=== PATIENT | female | born 1985 | race Caucasian/White ===

== ENCOUNTER 2016-10-21 00:40 | Inpatient (IN) | payer OTHER ==
[2016-10-21] MEDS ORDERED: AMPICILLIN - 100 ML IVPB ONE (01:20)
[2016-10-21 01:41] VITALS: BMI 37.9
[2016-10-21 01:41] LABS: BASOPHIL 0.3 % (0-2.0); EOSINOPHIL 0.5 % (0-4.5); MCH 27.6 pg (25.7-33.7); MEAN CELL VOLUME 83.9 fl (80-96); NEUTROPHILS 78.7 % (42.8-82.8); PLATELET COUNT 169 K/MM3 (134-434); RDW 15.4 % (11.6-15.6); WHITE BLOOD COUNT 12.7 K/mm3 (4.0-10.0)
[2016-10-21 01:52] LABS: INR 1.05 (0.82-1.09); PROTHROMBIN TIME (PATIENT) 11.6 SEC (9.98-11.88)
[2016-10-21 01:54] LABS: ACTIVATED PTT 27.6 SECONDS (26.9-34.4)
[2016-10-21] MEDS ORDERED: DEXTROSE 5%-LACTATED RINGERS 1,000 ML IV SCH (02:00)
[2016-10-21 02:10] LABS: ALBUMIN 2.9 g/dl (3.4-5.0); ALK PHOS 177 U/L (45-117); ANION GAP 10 (8-16); BILIRUBIN,TOTAL 0.4 mg/dL (0.2-1.0); CALCIUM 8.8 mg/dL (8.5-10.1); CO2 25 mmol/L (21-32); CREATININE 0.4 mg/dL (0.55-1.02); GLUCOSE,RANDOM 110 mg/dL (74-106); SGOT/AST 9 U/L (15-37); SGPT/ALT 13 U/L (12-78); TOT PROT 6.3 g/dl (6.4-8.2)
[2016-10-21] MEDS ORDERED: WITCH HAZEL 50% (TUCKS) 40 PAD/JAR PAD TP PRN (02:13)
[2016-10-21] MEDS ORDERED: BENZOCAINE 28 GM HEMORRHOIDAL OINTMENT PR PRN (02:13)
[2016-10-21] MEDS ORDERED: METHYLERGONOVINE MALEATE 0.2 MG/1 ML AMP IM PRN (02:13)
[2016-10-21] MEDS ORDERED: BENZOCAINE 20% 57 GM BOTTLE TP PRN (02:13)
[2016-10-21] MEDS ORDERED: BISACODYL 10 MG SUPP.RECT RC PRN (02:13)
[2016-10-21] MEDS ORDERED: D5W-LR W/ 20 UNITS OXYTOCIN 1,000 ML IV SCH (02:15)
[2016-10-21] MEDS ORDERED: ELECTROLYTE-148 SOLN 1,000 ML IV SCH (02:15)
--- NOTE | 2016-10-21 02:20 | HP ---
Past Medical History - Primary Care Physician PCP:: Corinne Alberts - Admission Chief Complaint: Active labor History of Present Illness: 30 yo EDC 10/19/16 EGA 40.2 week admitted in active labor no bleeding 11/12 PMH Hyper throid, Migraines hx allergic rhinitis History Source: Patient - Past Medical History ...: 2 ...Para: 1 ...Term: 0 ...: 0 ...Spon : 0 ...Induced : 0 ...Multiple Gestation: 0 ...EDC by [facility]: 10/20/15 Additional OB History: nsved 10/2012 ENT: Yes: Allergic Rhinitis Endocrine: Yes: Hyperthyroidism - Past Surgical History Hx Myomectomy: No Hx Transabdominal Cerclage: No - Smoking History Smoking history: Never smoked Have you smoked in the past 12 months: No Aproximately how many cigarettes per day: 0 - Alcohol/Substance Use Hx Alcohol Use: No - Social History Usual Living Arrangement: Yes: With Spouse History of Recent Travel: No Home Medications - Allergies Allergies/Adverse Reactions: Allergies Allergy/AdvReac Type Severity Reaction Status Date / Time No Known Allergies Allergy Verified 10/21/16 02:09 - Home Medications Home Medications: Ambulatory Orders [id number]/Iron Fumarate/FA/Dss [ 19 Tablet] 1 each PO DAILY 10/21/16 Review of Systems - Review of Systems Constitutional: reports: No Symptoms Eyes: reports: No Symptoms HENT: reports: No Symptoms Neck: reports: No Symptoms Cardiovascular: reports: No Symptoms Respiratory: reports: No Symptoms Gastrointestinal: reports: No Symptoms Genitourinary: reports: No Symptoms Breasts: reports: No Symptoms Reported Musculoskeletal: reports: No Symptoms Integumentary: reports: No Symptoms Neurological: reports: No Symptoms Endocrine: reports: No Symptoms Hematology/Lymphatic: reports: No Symptoms Psychiatric: reports: No Symptoms Physical Exam - Maternity Vital Signs: Vital Signs Temperature 98.0 F 10/21/16 01:22 Pulse Rate 72 10/21/16 01:22 Respiratory Rate 18 10/21/16 01:22 Blood Pressure 140/78 10/21/16 01:22 O2 Sat by Pulse Oximetry (%) Constitutional: Yes: Well Nourished, No Distress HENT: Yes: WNL Neck: Yes: WNL Cardiovascular: Yes: WNL Lungs: Clear to auscultation Breast(s): Yes: WNL - Abdominal Exam/OB Fundal Height: 40 Number of Fetuses: Single Presentation: Vertex Contractions: Yes Regularity: Regular Intensity: Moderate Monitor Mode: External Heart Rate Location: LLQ - Vaginal Exam/OB Dilatation (cm): 7 Amniotic Membrane Status: Intact Presentation: Vertex/Position - Physical Exam Musculoskeletal: Yes: WNL Extremities: Yes: WNL Edema: No - Labs Lab Results: CBC, BMP 10/21/16 01:20 10/21/16 01:20 Hemorrhage Risk Assessment - Risk Factors Risk Score: 0 Risk Level: Low Risk Problem List - Problems (1) Labor established Code(s): [id number] - Assessment/Plan 1up at 40.2 week Active Labor Plan Epidural Anticipate vaginal delivery
[2016-10-21] MEDS: FENTANYL/BUPIVACAINE/NS/PF - PCEA - 50 ML DISP.SYRIN EP SCH (02:40)
[2016-10-21] MEDS: ELECTROLYTE-148 SOLN 1,000 ML IV SCH (02:50)
--- NOTE | 2016-10-21 02:54 | PN ---
Ante-Partal Exam - Subjective Subjective: Pt doing well active contractions Vital Signs: Vital Signs Temperature 98.0 F 10/21/16 01:22 Pulse Rate 72 10/21/16 01:22 Respiratory Rate 18 10/21/16 01:22 Blood Pressure 140/78 10/21/16 01:22 O2 Sat by Pulse Oximetry (%) Bleeding: No Headache: No Visual changes: No Right upper quadrant pain: No - Contractions Contractions: Yes Regularity: Irregular Intensity: Mild/Mod Monitor Mode: External - Exam during Labor Heart Rate: 130 Variability: Moderate Category: I Monitor Accelerations: Present Monitor Decelerations: None Exam: Vaginal (arom clear) Dilatation (cm): 8 Effacement (%): 100 Amniotic Membrane Status: Ruptured Amniotic Fluid: Clear Presentation: Vertex Station: 0 - Intrapartum Hemorrhage Risk Risk Score: 0 Risk Level: Low Risk - Assessment/Plan Assessment/Plan: iup at weeks active labor Cat 1 plan Anticipate vaginal delivery
[2016-10-21] MEDS ORDERED: OXYTOCIN 20 UNITS in 0.9% NS 1,000 ML IV SCH (03:00)
[2016-10-21] MEDS ORDERED: OXYTOCIN 15 UNITS/ LR 250 ML 250 ML IVPB SCH (03:30)
[2016-10-21 03:51] LABS: HIV 1 & 2 AB NEGATIVE
[2016-10-21 03:52] LABS: HIV 1 AGp24 NEGATIVE
[2016-10-21] MEDS: AMPICILLIN - 100 ML IVPB SCH ×3 (05:00→13:32)
[2016-10-21] MEDS: D5W-LR W/ 20 UNITS OXYTOCIN 1,000 ML IV SCH ×3 (08:00→16:15)
--- NOTE | 2016-10-21 08:00 | PN ---
Delivery - Delivery Vaginal Delivery: No Problems Type of Anesthesia: Epidural Episiotomy/Laceration: Midline EBL (cc): 400 Delivery, Single - Stages of Labor Placenta: Yes: Spontaneous - Condition of Infant Infant Gender: Female Position: OA - Feeding Plan Initial Plan: Exclusive throughout hospitalization
[2016-10-21 08:19] LABS: ARTERIAL BLD GAS O2 SATURATION 36.4 % (90-98.9); ARTERIAL BLOOD GAS BASE EXCESS -10.3 meq/l (-2-2); ARTERIAL BLOOD GAS HCO3 22.3 meq/L (22-26)
[2016-10-21 08:20] LABS: ARTERIAL BLOOD GAS pH 7.07 (7.35-7.45); LPM/O2% 21%; PT. ON O2? NO; TYPE OF O2 ROOM AIR
[2016-10-21 08:21] LABS: ARTERIAL BLOOD GAS PO2 27.8 mmHg (80-100)
[2016-10-21 08:23] LABS: VENOUS BLOOD GAS HCO3 21.4 meq/L (19-25); VENOUS PH 7.23 (7.32-7.42)
[2016-10-21] MEDS: IBUPROFEN 600 MG TABLET (FP) PO PRN ×2 (11:44→21:27)
[2016-10-21] MEDS: ACETAMINOPHEN 325 MG TABLET (FP) PO PRN ×2 (11:46→21:26)
--- NOTE | 2016-10-22 06:58 | PN ---
Post Progress Note - Subjective Subjective: Pt seen/examined and doing well. Pain controlled, tolerating diet. Ambulating , voiding, passing flatus. Had moderate lochia overnight, s/p one dose methegine yesterday, improved this a.m. Type of Delivery: Vital Signs: Vital Signs Temperature 98.1 F 10/22/16 06:00 Pulse Rate 66 10/22/16 06:00 Respiratory Rate 20 10/22/16 06:00 Blood Pressure 130/84 10/22/16 06:00 O2 Sat by Pulse Oximetry (%) 100 10/21/16 09:00 Uterus: Yes: Fundus Firm, Fundus below umbilicus Abdomen/GI: Yes: Abdomen soft, Passing flatus, Tolerating PO. No: Abdominal Distention, Tender Lochia: Yes: Rubra Lochia, amount: Moderate Extremities: Yes: Calves non-tender Perineum: Yes: Laceration (repaired and healing well) - Labs Labs: CBC WBC 12.7 K/mm3 (4.0-10.0) H 10/21/16 01:20 RBC 4.10 M/mm3 (3.60-5.2) 10/21/16 01:20 Hgb 11.3 GM/dL (10.7-15.3) 10/21/16 01:20 Hct 34.4 % (32.4-45.2) 10/21/16 01:20 MCV 83.9 fl (80-96) 10/21/16 01:20 MCHC 33.0 g/dl (32.0-36.0) 10/21/16 01:20 RDW 15.4 % (11.6-15.6) 10/21/16 01:20 Plt Count 169 K/MM3 (134-434) 10/21/16 01:20 MPV 10.0 fl (7.5-11.1) 10/21/16 01:20 Neutrophils % 78.7 % (42.8-82.8) 10/21/16 01:20 Lymphocytes % 13.0 % (8-40) D 10/21/16 01:20 Monocytes % 7.5 % (3.8-10.2) 10/21/16 01:20 Eosinophils % 0.5 % (0-4.5) D 10/21/16 01:20 Basophils % 0.3 % (0-2.0) 10/21/16 01:20 Problem List - Problems (1) Vaginal delivery Code(s): O80 - ENCOUNTER FOR FULL-TERM UNCOMPLICATED DELIVERY (2) Obesity (BMI 30-39.9) Code(s): E66.9 - OBESITY, UNSPECIFIED Assessment/Plan 30 y/o post day 1 s/p normal - AFVSS - Moderate lochia, s/p methergine yesterday, will monitor - regular diet, PO pain meds, routine care
[2016-10-22] MEDS ORDERED: oxyCODONE HCL 5 MG TABLET PO PRN (07:02)
[2016-10-22] MEDS: IBUPROFEN 600 MG TABLET (FP) PO PRN ×3 (08:26→21:50)
[2016-10-22] MEDS: ACETAMINOPHEN 325 MG TABLET (FP) PO PRN ×3 (08:27→21:51)
[2016-10-22 08:48] LABS: BASOPHIL 0.4 % (0-2.0); EOSINOPHIL 0.9 % (0-4.5); MCH 28.4 pg (25.7-33.7); MCHC 33.3 g/dl (32.0-36.0); MEAN CELL VOLUME 85.1 fl (80-96); MEAN PLT VOLUME 10.1 fl (7.5-11.1); NEUTROPHILS 71.2 % (42.8-82.8); PLATELET COUNT 134 K/MM3 (134-434); RDW 15.9 % (11.6-15.6); WHITE BLOOD COUNT 9.9 K/mm3 (4.0-10.0)
[2016-10-22] MEDS: ELECTROLYTE-148 SOLN 1,000 ML IV SCH (11:29)
[2016-10-22] MEDS ORDERED: DIPHTH,PERTUSS(ACELL),TET 0.5 ML DISP.SYRIN IM ONE (14:00)
[2016-10-22] MEDS: FENTANYL/BUPIVACAINE/NS/PF - PCEA - 50 ML DISP.SYRIN EP SCH (20:00)
[2016-10-23] MEDS: IBUPROFEN 600 MG TABLET (FP) PO PRN (06:30)
[2016-10-23] MEDS: ACETAMINOPHEN 325 MG TABLET (FP) PO PRN (06:30)
--- NOTE | 2016-10-23 08:04 | DS ---
Physical Exam-FACE WORKER Vital Signs: Vital Signs Temperature 98.8 F 10/22/16 22:00 Pulse Rate 73 10/22/16 22:00 Respiratory Rate 20 10/22/16 22:00 Blood Pressure 133/77 10/22/16 22:00 O2 Sat by Pulse Oximetry (%) 100 10/21/16 09:00 Labs: CBC, BMP 10/22/16 08:00 10/21/16 01:20 Delivery - Delivery Vaginal Delivery: No Problems Type of Anesthesia: Epidural Episiotomy/Laceration: Midline EBL (cc): 400 Delivery, Single - Stages of Labor Date 1st Stage Initiatied: 10/20/16 Time 1st Stage Initiated: 23:00 Date 2nd Stage Initiated: 10/21/16 Time 2nd Stage Initiated: 07:20 Date of Delivery: 10/21/16 Time of Delivery: 07:49 Time Placenta Delivered: 08:00 Placenta: Yes: Spontaneous - Condition of Infant Category Analyst/Assemblies And Installations Inspector Present: No Infant Gender: Female Weight: 7 lb 10 oz Position: OA Total Hours ROM (Hrs/Mins): 5 HOURS 10 MINUTES - 1 Minute Total Score: 9 5 Minutes Total Score: 9 - [place] Feeding Plan Initial Plan: Exclusive throughout hospitalization Discharge Summary Reason For Visit: LABOR ADMIT Current Active Problems Labor established (Acute) Obesity (BMI 30-39.9) (Acute) Procedures: Principal: normal Hospital Course: unremarkable post recovery Condition: Good - Instructions Diet, Activity, Other Instructions: Physical activity Resume your normal everyday activity as tolerated no heavy lifting or exercise until seen by your surgeon. You may walk unlimited riley of and climb stairs. You may resume driving the car when you feel safe and comfortable behind the wheel. No sexual activity as instructed. Wound care If you have a bandage, leave it on, and keep dry for 48-72 hours. After that time discard the outer bandage. If they are tapes on the skin under the out of bandage leave them in place. They will peel off in the next 7 to 10 days. Do Not Peel them off. You may shower the day after surgery. If there are tapes present on the skin, you may shower over them. Diet There are no dietary restrictions. Eat healthy, high-fiber foods. Drink 6 to 8 glasses of liquid each day. This will assist in keeping your bowels are regular. Pain management You may take Tylenol or acetaminophen or Ibuprofen (for example, Motrin, Advil etc.) from my pain prescription medication is ordered should be taken as prescribed for moderate to severe pain. Call MD for any of the following: Severe pain not relieved by medication Fever of 101 or higher Excessive bleeding or drainage on dressing Inability to urinate Referrals: Corinne Alberts MD [Staff Physician] - Disposition: HOME - Home Medications Comprehensive Discharge Medication List: Ambulatory Orders [id number]/Iron Fumarate/FA/Dss [ 19 Tablet] 1 each PO DAILY 10/21/16 Ibuprofen [Motrin -] 600 mg PO QID PRN #28 tablet 10/23/16
[2016-10-23 10:11] VITALS: BP 121/72; PULSE 64; TEMP 98.1
== END 2016-10-23 12:30 | disposition home or self-care (01) | DRG 775 ==
LOC: JDEL 00:40 → JLDR 00:41 → J3W 09:50
PROVIDERS: ADMIT Obstetrics & Gynecology; ATTEND Obstetrics & Gynecology
PROC: 0W8NXZZ Division of Female Perineum, External Approach (ICD-10-PCS; principal; 2016-10-21)
PROC: 10E0XZZ Delivery of Products of Conception, External Approach (ICD-10-PCS; 2016-10-21)
DX: O48.0 Post-term pregnancy (principal); O99.284 Endocrine, nutritional and metabolic diseases complicating childbirth; O75.89 Other specified complications of labor and delivery; G43.809 Other migraine, not intractable, without status migrainosus; O99.214 Obesity complicating childbirth; E66.8 Other obesity; Z68.37 Body mass index [BMI] 37.0-37.9, adult; Z3A.40 40 weeks gestation of pregnancy; Z37.0 Single live birth
CPT/HCPCS: 36415; 36600; 59409; 80053; 82803; 85025; 85610; 85730; 86593; 86762; 86850; 86900; 86901; 87340; 87389; 90715

== ENCOUNTER 2020-06-06 04:14 | Day surgery (SDC) | payer OTHER ==
[2020-06-03 14:48] VITALS: BMI 40.3
[2020-06-06] MEDS ORDERED: PROPOFOL 20 ML ONE (09:48)
[2020-06-06] MEDS ORDERED: fentaNYL CITRATE 250 MCG/5 ML VIAL ONE (09:48)
[2020-06-06] MEDS ORDERED: SUCCINYLCHOLINE CHLORIDE 200 MG/10 ML SYRINGE ONE (09:48)
[2020-06-06] MEDS ORDERED: ROCURONIUM BROMIDE 100 MG/10 ML VIAL ONE (09:48)
[2020-06-06] MEDS ORDERED: MIDAZOLAM HCL 2 MG/2 ML SINGLE DOSE VIAL ONE (09:49)
[2020-06-06] MEDS ORDERED: ceFAZolin SODIUM 1 GM VIAL IVPB ONE (10:08)
[2020-06-06] MEDS ORDERED: KETOROLAC TROMETHAMINE 30 MG/1 ML VIAL ONE (10:28)
[2020-06-06] MEDS ORDERED: ceFAZolin SODIUM 1 GM VIAL ONE ×2 (10:28→10:29)
[2020-06-06] MEDS ORDERED: ONDANSETRON 4 MG/2 ML VIAL ONE (10:28)
[2020-06-06] MEDS ORDERED: DEXAMETHASONE SOD PHOSPHATE 4 MG/1 ML VIAL ONE (10:28)
[2020-06-06] MEDS ORDERED: LIDOCAINE HCL 2% 100 MG/5 ML DISP.SYRIN ONE (10:29)
[2020-06-06] MEDS ORDERED: NEOSTIGMINE METHYLSULFATE 0.5 MG/ML - 10 ML MDV ONE (10:30)
[2020-06-06] MEDS ORDERED: GLYCOPYRROLATE 0.2 MG/1 ML VIAL ONE (10:30)
[2020-06-06] MEDS ORDERED: BENZOIN/ALOE VERA/STORAX/TOLU 58 ML BOTTLE ONE (10:49)
[2020-06-06] MEDS ORDERED: BUPIVACAINE HCL/PF 0.5% (5 MG/ML) 30 ML VIAL IJ ONE (10:53)
[2020-06-06] MEDS ORDERED: ACETAMINOPHEN INJECTION 100 ML IVPB ONE (11:06)
[2020-06-06] MEDS ORDERED: oxyCODONE HCL 5 MG TABLET PO PRN (11:10)
[2020-06-06] MEDS ORDERED: ONDANSETRON 4 MG/2 ML VIAL IVPUSH PRN (11:10)
[2020-06-06] MEDS ORDERED: PROMETHAZINE HCL 25 MG/1 ML VIAL IVPUSH PRN (11:10)
[2020-06-06] MEDS ORDERED: ACETAMINOPHEN 1000 MG/100 ML VIAL (NON FORMULARY) IVPB ONE (11:11)
[2020-06-06] MEDS ORDERED: LACTATED RINGERS SOLUTION 1,000 ML IV SCH (11:15)
[2020-06-06 16:29] VITALS: BP 133/71; PULSE 86; TEMP 98.2
== END 2020-06-06 14:55 | disposition home or self-care (01) ==
LOC: JASU-SURG 04:14
PROVIDERS: ATTEND Surgery
PROC: 0WQF0ZZ Repair Abdominal Wall, Open Approach (ICD-10-PCS; principal; 2020-06-06 09:00)
DX: K42.0 Umbilical hernia with obstruction, without gangrene (principal)
CPT/HCPCS: 84703; 88302-TC; 94760; J0131